=== PATIENT | female | born 1935 | race Caucasian/White ===

== ENCOUNTER 2016-06-10 19:03 | Inpatient (IN) | payer MEDICARE ==
[~2016-06-10] VITALS: Ht 162.6 cm; Wt 73.1 kg
[~2016-06-10 19:03] MED LIST: AMLO5TAB22 PO; ASPI325T PO; ATEN-102 PO; BENA10 PO; CLON.2 PO; LOVA20TA PO; METH4PAK PO
[2016-06-10 19:07] VITALS: BP 188/84; PULSE 76; RESP 15; TEMP 98; O2SAT 97
[2016-06-10] MEDS ORDERED: SODIUM CHLOR 0.9% 1000 ML INJ 1,000 ML IV SCH (20:44)
[2016-06-10] MEDS ORDERED: PANTOPRAZOLE INJ 80 MG in SODIUM CHLORIDE 0.9% INJ 35 ML IV ONE (20:45)
[2016-06-10] MEDS ORDERED: ONDANSETRON HCL 4 MG/2 ML VIAL IVP ONE (20:45)
--- NOTE | 2016-06-10 20:52 | PD ---
HPI Chief Complaint: GI Complaint Time Seen by Provider: 20:36 Travel History International Travel<30 days: No Contact w/Intl Traveler<30days: No Traveled to known affect area: No History of Present Illness HPI 81-year-old female complains of low abdominal pain and bloody stool. Patient started having low abdominal cramping pain since last night. Patient started having intermittent diarrhea with bright red bloody stools since last night also. Patient states that she vomited once last night but not today. Patient states that the abdominal pain is intermittent cramping pain localized to the lower abdomen. Patient denies any pain radiation. Patient denies any fever chills. Patient denies any dysuria or frequency. Patient denies any vaginal discharge or bleeding. Patient states that she had colonoscopy done by Dr. Marina 3 years ago which was normal. Patient has history hypertension, dyslipidemia, atrial fibrillation. Patient on aspirin 325 mg daily. On a scale from 1-10 the pain is a 3. PFSH Past Medical History Hx Anticoagulant Therapy: Yes (asa) Arthritis: Yes Asthma: No Atrial Fibrillation: Yes Autoimmune Disease: No Depression: No Heart Rhythm Problems: Yes (A-FIB) Cancer: No Cardiovascular Problems: Yes (AFIB/ABLATION) High Cholesterol: No Chemotherapy: No Chest Pain: No Congestive Heart Failure: No COPD: No Cerebrovascular Accident: No Diabetes: No Diminished Hearing: No Endocrine: No Gastrointestinal Disorders: Yes GERD: No Genitourinary: No Hepatitis: No Hiatal Hernia: No Hypertension: Yes Immune Disorder: No Kidney Stones: No Musculoskeletal: No Neurologic: No Psychiatric: No Reproductive: No Respiratory: No Migraines: No Radiation Therapy: No Renal Failure: No Seizures: No Sickle Cell Disease: No Sleep Apnea: No Thyroid Disease: No Ulcer: No Menopausal: Yes Past Surgical History Abdominal Surgery: No AICD: No Arteriovenous Shunt: No Cardiac Surgery: No Ear Surgery: No Eye Surgery: Yes (LEFT CATARACT) Genitourinary Surgery: No Gynecologic Surgery: No Insulin Pump: No Joint Replacement: No Oral Surgery: No Pacemaker: No Thoracic Surgery: No Tonsillectomy: Yes Other Surgery: Yes (ABLASION) Social History Alcohol Use: Yes (FEW DRINKS PER WEEK) Tobacco Use: No Substance Use: No Allergies-Medications (Allergen,Severity, Reaction): Coded Allergies: ANTIHISTAMINE DRUGS (Verified Allergy, Severe, HYPERTENSION, 06/10/16) Reported Meds & Prescriptions Reported Meds & Active Scripts Active Reported Losartan (Losartan Potassium) 100 Mg Tab 100 Mg PO DAILY Lovastatin 20 Mg Tab 20 Mg PO HS Hydralazine (Hydralazine HCl) 50 Mg Tab 50 Mg PO TID Take with a meal Amlodipine (Amlodipine Besylate) 5 Mg Tab 5 Mg PO BID Benazepril (Benazepril HCl) 20 Mg Tab 20 Mg PO BID Atenolol 50 Mg Tab 50 Mg PO BID Review of Systems General / Constitutional: No: Fever Eyes: No: Visual changes HENT: No: Headaches Cardiovascular: No: Chest Pain or Discomfort Respiratory: No: Shortness of Breath Gastrointestinal: Positive: Nausea, Vomiting, Diarrhea, Abdominal Pain, Hematochezia Genitourinary: No: Dysuria Musculoskeletal: No: Pain Skin: No Rash Neurologic: No: Weakness Psychiatric: No: Depression Endocrine: No: Polydipsia Hematologic/Lymphatic: No: Easy Bruising Physical Exam Narrative GENERAL: Well-nourished, well-developed patient. SKIN: Warm and dry. HEAD: Normocephalic. EYES: No scleral icterus. No injection or drainage. NECK: Supple, trachea midline. No JVD or lymphadenopathy. CARDIOVASCULAR: Regular rate and rhythm without murmurs, gallops, or rubs. RESPIRATORY: Breath sounds equal bilaterally. No accessory muscle use. GASTROINTESTINAL: Abdomen soft, nondistended. Patient has mild tenderness on palpation lower abdomen. No rebound tenderness. No mass. Rectal exam, patient has red stool, hemocculted positive. No active bleeding out of her rectum. MUSCULOSKELETAL: No cyanosis, or edema. BACK: Nontender without obvious deformity. No CVA tenderness. Neurologic exam normal. Data Data Last Documented VS Vital Signs Date Time Temp Pulse Resp B/P Pulse Ox O2 Delivery O2 Flow Rate FiO2 06/11/16 02:00 66 20 150/70 95 Room Air 06/10/16 19:07 98.0 Orders Complete Blood Count With Diff (06/10/16 20:44) Comprehensive Metabolic Panel (06/10/16 20:44) Lipase (06/10/16 20:44) Prothrombin Time / Inr (Pt) (06/10/16 20:44) Act Partial Throm Time (Ptt) (06/10/16 20:44) Urinalysis - C+S If Indicated (06/10/16 20:44) Type And Screen (06/10/16 20:44) Chest, Single Ap (06/10/16 20:44) Ecg Monitoring (06/10/16 20:44) Iv Access Insert/Monitor (06/10/16 20:44) Oximetry (06/10/16 20:44) Ondansetron Inj (Zofran Inj) (06/10/16 20:45) Sodium Chlor 0.9% 1000 Ml Inj (Ns 1000 M (06/10/16 20:44) Pantoprazole Inj (Protonix Inj) (06/10/16 20:45) Pantoprazole Inj (Protonix Inj) (06/10/16 20:45) Electrocardiogram (06/10/16 ) Potassium Chlor 20 Meq Premix (Kcl 20 Me (06/11/16 01:15) Ct Abd/Pel W Iv Contrast(Rout) (06/11/16 ) Iohexol 350 Inj (Omnipaque 350 Inj) (06/11/16 01:30) Labs Laboratory Tests Test 06/10/16 06/11/16 22:30 02:44 White Blood Count 10.1 TH/MM3 Red Blood Count 4.92 MIL/MM3 Hemoglobin 14.3 GM/DL Hematocrit 42.7 % Mean Corpuscular Volume 86.7 FL Mean Corpuscular Hemoglobin 29.1 PG Mean Corpuscular Hemoglobin 33.5 % Concent Red Cell Distribution Width 14.5 % Platelet Count 229 TH/MM3 Mean Platelet Volume 9.9 FL Neutrophils (%) (Auto) 80.8 % Lymphocytes (%) (Auto) 10.4 % Monocytes (%) (Auto) 6.5 % Eosinophils (%) (Auto) 1.5 % Basophils (%) (Auto) 0.8 % Neutrophils # (Auto) 8.2 TH/MM3 Lymphocytes # (Auto) 1.0 TH/MM3 Monocytes # (Auto) 0.7 TH/MM3 Eosinophils # (Auto) 0.1 TH/MM3 Basophils # (Auto) 0.1 TH/MM3 CBC Comment DIFF FINAL Differential Comment Prothrombin Time 10.9 SEC Prothromb Time International 1.0 RATIO Ratio Activated Partial 28.7 SEC Thromboplast Time Sodium Level 142 MEQ/L Potassium Level 2.8 MEQ/L Chloride Level 104 MEQ/L Carbon Dioxide Level 23.0 MEQ/L Anion Gap 15 MEQ/L Blood Urea Nitrogen 20 MG/DL Creatinine 1.12 MG/DL Estimat Glomerular Filtration 47 ML/MIN Rate Random Glucose 97 MG/DL Calcium Level 9.2 MG/DL Total Bilirubin 0.8 MG/DL Aspartate Amino Transf 13 U/L (AST/SGOT) Alanine Aminotransferase 18 U/L (ALT/SGPT) Alkaline Phosphatase 120 U/L Total Protein 7.7 GM/DL Albumin 3.9 GM/DL Lipase 77 U/L Blood Type A POSITIVE Antibody Screen NEGATIVE Urine Color YELLOW Urine Turbidity CLEAR Urine pH 6.5 Urine Specific [place] 1.022 Urine Protein NEG mg/dL Urine Glucose (UA) NEG mg/dL Urine Ketones NEG mg/dL Urine Occult Blood NEG Urine Nitrite NEG Urine Bilirubin NEG Urine Urobilinogen LESS THAN 2.0 MG/DL Urine Leukocyte Esterase LARGE Urine RBC 1 /hpf Urine WBC 3 /hpf Urine Squamous Epithelial 2 /hpf Cells Urine Mucus FEW /lpf Microscopic Urinalysis Comment CULT NOT INDICATED MDM Medical Decision Making Medical Screen Exam Complete: Yes Emergency Medical Condition: Yes Interpretation(s) Last Impressions Abdomen/Pelvis CT 06/11/16 0000 Signed Impressions: Service Date/Time: Saturday, June 11, 2016 01:30 - CONCLUSION: 1. Wall thickening of the descending and sigmoid colon which can be seen with colitis. Underlying diverticulitis cannot be excluded. 2. Hepatic and splenic low densities likely benign. 3. Several soft tissue masses are seen within the mesentery concerning for neoplastic etiology. 4. Uterus is somewhat prominent for patient's age. Nonemergent transvaginal pelvic sonogram to evaluate endometrium. 5. 1.2 cm right renal low density, likely benign. John Knowles MD Chest X-Ray 06/10/162043 Signed Impressions: Service Date/Time: May 20:44 - CONCLUSION: No evidence of acute cardiopulmonary disease. Jamison Macias MD 3:11 AM. CBC within normal limit. 80 neutrophil. Potassium 2.8. BUN 20. Creatinine 1.12. Alkaline phosphatase 120. UA is negative. Differential Diagnosis Differential diagnosis including upper versus lower GI bleed, gastritis, PUD, colitis, UTI, pyelonephritis, nephrolithiasis. Narrative Course 81-year-old female with low abdominal pain, diarrhea, bloody stool. Normal saline solution 100 cc an hour. Protonix bolus and drip started. Levaquin 750 mg IV. Flagyl 500 mg IV. Diagnosis Primary Impression: Colitis Additional Impressions: GI bleed Qualified Code: K92.2 - Gastrointestinal hemorrhage, unspecified gastrointestinal hemorrhage type Hypokalemia Renal insufficiency Admitting Information Admitting Physician Requests: Admit Antony Daniels MD Jun 10, 2016 20:52
--- NOTE | 2016-06-10 21:01 | RADRPT ---
EXAM DATE/TIME: 06/10/2016 20:44 [facility] COMPARISON: CHEST SINGLE AP, February 05, 2013, 13:24. CHEST SINGLE AP, December 15, 2012, 14:27. INDICATIONS : Shortness of breath. MEDICAL HISTORY : None. SURGICAL HISTORY : None. ENCOUNTER: Initial ACUITY: 1 day PAIN SCORE: 0/10 LOCATION: Bilateral chest FINDINGS: A single view of the chest demonstrates the lungs to be symmetrically aerated without evidence of mas s, infiltrate or effusion. The cardiomediastinal contours are unremarkable. Osseous structures are intact. CONCLUSION: No evidence of acute cardiopulmonary disease. Jamison Macias MD on June 10, 2016 at 20:59 Board Certified Radiologist. This report was verified electronically.
[2016-06-10] MEDS: PANTOPRAZOLE INJ 80 MG in SODIUM CHLORIDE 0.9% INJ 100 ML IV SCH (21:18)
[2016-06-10 21:25] VITALS: RESP 18; O2SAT 98
[2016-06-11] VITALS (9 sets, daily range): BP systolic 116–180; BP diastolic 58–81; PULSE 60–73; RESP 16–20; TEMP 96.6–98.2; O2SAT 92–97
[2016-06-11 00:05] LABS: AUTOMATED NEUTROPHIL # 8.2 TH/MM3 (1.8-7.7); BASOPHIL # 0.1 TH/MM3 (0-0.2); BASOPHIL % 0.8 % (0.0-2.0); EOSINOPHIL # 0.1 TH/MM3 (0-0.4); EOSINOPHIL % 1.5 % (0.0-4.0); HEMATOCRIT 42.7 % (35.0-46.0); HEMO FLAGS DIFF FINAL; LYMPH % 10.4 % (9.0-44.0); MEAN CELL VOLUME 86.7 FL (80.0-100.0); MEAN CORPUSCULAR HEMOGLOBIN 29.1 PG (27.0-34.0); MEAN CORPUSCULAR HGB CONC 33.5 % (32.0-36.0); MONO % 6.5 % (0.0-8.0); NEUT % 80.8 % (16.0-70.0); PLATELET COUNT 229 TH/MM3 (150-450); RED BLOOD COUNT 4.92 MIL/MM3 (4.00-5.30); RED CELL DISTRIBUTION WIDTH 14.5 % (11.6-17.2); WHITE BLOOD COUNT 10.1 TH/MM3 (4.0-11.0)
[2016-06-11] MEDS ORDERED: HYDR50TA15 PO (00:08)
[2016-06-11] MEDS ORDERED: LOVA20TA PO (00:08)
[2016-06-11] MEDS ORDERED: ATEN50TA PO (00:08)
[2016-06-11] MEDS ORDERED: AMLO5TAB2 PO (00:08)
[2016-06-11] MEDS ORDERED: BENA20TA PO (00:08)
[2016-06-11] MEDS ORDERED: LOSA100T PO (00:09)
[2016-06-11 00:18] LABS: APTT (PATIENT) 28.7 SEC (24.3-30.1); PROTHROMBIN TIME - PATIENT 10.9 SEC (9.8-11.6)
[2016-06-11 01:06] LABS: ALKALINE PHOSPHATASE 120 U/L (45-117); ALT (GPT) 18 U/L (10-53); ANION GAP 15 MEQ/L (5-15); AST (GOT) 13 U/L (15-37); BLOOD UREA NITROGEN 20 MG/DL (7-18); CHLORIDE 104 MEQ/L (98-107); GLOMERULAR FILTRATION RATE 47 ML/MIN (>89); SODIUM (NA) 142 MEQ/L (136-145); TOTAL BILIRUBIN ADULT 0.8 MG/DL (0.2-1.0)
[2016-06-11 01:07] LABS: POTASSIUM 2.8 MEQ/L (3.5-5.1)
[2016-06-11] MEDS ORDERED: IOHEXOL 350 MG/ML 10 ML VIAL (for RAD DIAG) IV ONE (01:30)
--- NOTE | 2016-06-11 02:12 | RADRPT ---
EXAM DATE/TIME: 06/11/2016 01:30 [facility] COMPARISON: No previous studies available for comparison. INDICATIONS : Lower abdominal pain and bloody stool. IV CONTRAST: 93 cc Omnipaque 350 (iohexol) IV ORAL CONTRAST: No oral contrast ingested. RADIATION DOSE: 9.12 CTDIvol (mGy) MEDICAL HISTORY : Hypertension. SURGICAL HISTORY : None. ENCOUNTER: Initial ACUITY: 1 day PAIN SCALE: 7/10 LOCATION: lower quadrant abdomen TECHNIQUE: Volumetric scanning of the abdomen and pelvis was performed. Using automated exposure control and ad justment of the mA and/or kV according to patient size, radiation dose was kept as low as reasonably achievable to obtain optimal diagnostic quality images. FINDINGS: LOWER LUNGS: The visualized lower lungs are clear. LIVER: Homogeneous density without lesion. There is no dilation of the biliary tree. No calcified gallston es. 1.5 cm low-density lesion. Small low densities are seen. SPLEEN: Subcentimeter low density noted. PANCREAS: Within normal limits. KIDNEYS: Normal in size and shape. There is no mass, stone or hydronephrosis. 1.2 cm low-density involving th e lower pole right kidney. ADRENAL GLANDS: Within normal limits. VASCULAR: There is no aortic aneurysm. BOWEL/MESENTERY: Wall thickening and slight inflammatory change involving the descending and sigmoid colon. There is d iverticulosis of the well.. There is no free intraperitoneal air or fluid. Soft tissue masses are se en within the right lower quadrant mesentery the largest appears to contain some necrosis measuring 3 .1 x 3.1 cm. There is also one slightly more anteriorly measuring 2.4 x 1.9 cm. Another one measures 1.5 x 1.9 cm. Several other smaller ones are seen. ABDOMINAL WALL: Within normal limits. RETROPERITONEUM: There is no lymphadenopathy. BLADDER: No wall thickening or mass. REPRODUCTIVE: Uterus is slightly prominent. INGUINAL: There is no lymphadenopathy or hernia. MUSCULOSKELETAL: Within normal limits for patient age. CONCLUSION: 1. Wall thickening of the descending and sigmoid colon which can be seen with colitis. Underlying div erticulitis cannot be excluded. 2. Hepatic and splenic low densities likely benign. 3. Several soft tissue masses are seen within the mesentery concerning for neoplastic etiology. 4. Uterus is somewhat prominent for patient's age. Nonemergent transvaginal pelvic sonogram to evalua te endometrium. 5. 1.2 cm right renal low density, likely benign. John Knowles MD on June 11, 2016 at 2:05 Board Certified Radiologist. This report was verified electronically.
[2016-06-11] MEDS: POTASSIUM CHLOR 20 MEQ PREMIX 100 ML IV SCH ×2 (02:50→03:51)
[2016-06-11 03:05] LABS: BLOOD, URINE NEG (NEG); COMMENT (UR) CULT NOT INDICATED; CULTURE IF INDICATED CULT NOT INDICATED; GLUCOSE,URINE NEG (NEG); KETONE, URINE NEG (NEG); MUCUS URINE FEW /lpf (OCC); NITRITE,URINE NEG (NEG); PH, URINE 6.5 (5.0-8.5); SQUAMOUS EPITHELIAL CELL URINE 2 /hpf (0-5); URINE COLOR YELLOW (YELLW/STRAW)
[2016-06-11] MEDS ORDERED: SODIUM CHLORIDE 0.9% FLUSH 5 ML FLUSH IVF PRN (03:30)
[2016-06-11] MEDS ORDERED: ACETAMINOPHEN 325 MG TAB PO PRN (03:30)
[2016-06-11] MEDS ORDERED: LEVOFLOXACIN 750 MG PREMIX INJ 150 ML IV ONE (03:30)
[2016-06-11] MEDS ORDERED: metroNIDAZOLE 500 MG INJ 100 ML IV ONE (03:30)
[2016-06-11] MEDS ORDERED: ONDANSETRON HCL 4 MG/2 ML VIAL IV PRN (03:30)
[2016-06-11] MEDS: NS + KCL 20 MEQ INJ 1,000 ML IV SCH ×2 (04:53→13:30)
[2016-06-11 05:53] LABS: AUTOMATED NEUTROPHIL # 5.4 TH/MM3 (1.8-7.7); BASOPHIL # 0.1 TH/MM3 (0-0.2); EOSINOPHIL # 0.2 TH/MM3 (0-0.4); EOSINOPHIL % 2.5 % (0.0-4.0); HEMATOCRIT 33.8 % (35.0-46.0); HEMO FLAGS DIFF FINAL; LYMPH % 14.5 % (9.0-44.0); LYMPHOCYTE # 1.1 TH/MM3 (1.0-4.8); MEAN CELL VOLUME 87.7 FL (80.0-100.0); MEAN CORPUSCULAR HEMOGLOBIN 29.4 PG (27.0-34.0); MEAN CORPUSCULAR HGB CONC 33.5 % (32.0-36.0); MONO % 8.1 % (0.0-8.0); NEUT % 73.9 % (16.0-70.0); PLATELET COUNT 170 TH/MM3 (150-450); RED BLOOD COUNT 3.85 MIL/MM3 (4.00-5.30); RED CELL DISTRIBUTION WIDTH 14.1 % (11.6-17.2); WHITE BLOOD COUNT 7.3 TH/MM3 (4.0-11.0)
[2016-06-11 06:25] LABS: POTASSIUM 3.3 MEQ/L (3.5-5.1)
[2016-06-11] MEDS: POTASSIUM CHLORIDE 20 MEQ CONTROLLED RELEASE TAB PO SCH ×2 (08:08→21:19)
[2016-06-11] MEDS: SODIUM CHLORIDE 0.9% FLUSH 5 ML FLUSH IVF SCH ×2 (08:11→21:00)
[2016-06-11] MEDS: PANTOPRAZOLE INJ 80 MG in SODIUM CHLORIDE 0.9% INJ 100 ML IV SCH ×2 (08:41→18:13)
[2016-06-11] MEDS: ATENOLOL 50 MG TAB PO SCH ×2 (09:20→21:19)
[2016-06-11] MEDS: hydrALAZINE HCL 50 MG TAB PO SCH ×4 (09:20→18:13)
[2016-06-11] MEDS: amLODIPine BESYLATE 5 MG TAB PO SCH ×2 (09:20→21:19)
[2016-06-11] MEDS: LISINOPRIL 20 MG TAB PO SCH ×2 (09:20→21:19)
--- NOTE | 2016-06-11 11:05 | HHI.HP ---
HPI [facility] Primary Care Physician Gael Smyth MD Admission Diagnosis colitis. GI bleed. Hypokalemia. Renal insufficiency. Travel History International Travel<30 Days: No Contact w/Intl Traveler <30 Da: No Traveled to Known Affected Are: No History of Present Illness Pt is 81 yo with hx diverticulosis and afib who presents with rectal bleeding x 2 day. ED w/up showed descending/sigmoid colon inflammation..colitis vs diverticulitis. also some rlq mesenteric masses/?necrotic with uterine enlargement noted. Pt started on iv abx. Past Family Social History Past Medical History diverticuloosis afib polymyalgia rheumatica remote hx hyperthyroidism tonsillectomy carpal tunnel htn ckd 3 coumadin toxicity and diverticular bleed colonoscopy 2012. severe divertics in descending/sigmoid Reported Medications Losartan (Losartan Potassium) 100 Mg Tab 100 Mg PO DAILY Lovastatin 20 Mg Tab 20 Mg PO HS Hydralazine (Hydralazine HCl) 50 Mg Tab 50 Mg PO TID Take with a meal Amlodipine (Amlodipine Besylate) 5 Mg Tab 5 Mg PO BID Benazepril (Benazepril HCl) 20 Mg Tab 20 Mg PO BID Atenolol 50 Mg Tab 50 Mg PO BID asa Allergies: Coded Allergies: ANTIHISTAMINE DRUGS (Verified Allergy, Severe, HYPERTENSION, 06/10/16) Family History nc Social History no etoh/tob Physical Exam Vital Signs heart reg lung cta abd s/nt ext no edema Vital Signs Date Time Temp Pulse Resp B/P Pulse Ox O2 Delivery O2 Flow Rate FiO2 06/11/16 09:46 97 06/11/16 08:00 96.6 70 16 180/81 96 06/11/16 05:15 98.2 71 18 169/74 94 06/11/16 04:10 95 06/11/16 02:00 66 20 150/70 95 Room Air 06/11/16 00:00 60 20 149/70 95 Room Air 06/10/16 21:25 18 98 Room Air 06/10/16 19:07 98.0 76 15 188/84 97 Room Air Laboratory Laboratory Tests Test 06/10/16 06/11/16 06/11/16 06/11/16 22:30 02:44 04:50 05:30 White Blood Count 10.1 7.3 Red Blood Count 4.92 3.85 Hemoglobin 14.3 11.3 Hematocrit 42.7 33.8 Mean Corpuscular Volume 86.7 87.7 Mean Corpuscular Hemoglobin 29.1 29.4 Mean Corpuscular Hemoglobin 33.5 33.5 Concent Red Cell Distribution Width 14.5 14.1 Platelet Count 229 170 Mean Platelet Volume 9.9 10.0 Neutrophils (%) (Auto) 80.8 73.9 Lymphocytes (%) (Auto) 10.4 14.5 Monocytes (%) (Auto) 6.5 8.1 Eosinophils (%) (Auto) 1.5 2.5 Basophils (%) (Auto) 0.8 1.0 Neutrophils # (Auto) 8.2 5.4 Lymphocytes # (Auto) 1.0 1.1 Monocytes # (Auto) 0.7 0.6 Eosinophils # (Auto) 0.1 0.2 Basophils # (Auto) 0.1 0.1 CBC Comment DIFF FINAL DIFF FINAL Differential Comment Prothrombin Time 10.9 Prothromb Time International 1.0 Ratio Activated Partial 28.7 Thromboplast Time Sodium Level 142 142 Potassium Level 2.8 3.3 Chloride Level 104 107 Carbon Dioxide Level 23.0 21.0 Anion Gap 15 14 Blood Urea Nitrogen 20 15 Creatinine 1.12 0.93 Estimat Glomerular Filtration 47 58 Rate Random Glucose 97 107 Calcium Level 9.2 7.9 Total Bilirubin 0.8 Aspartate Amino Transf 13 (AST/SGOT) Alanine Aminotransferase 18 (ALT/SGPT) Alkaline Phosphatase 120 Total Protein 7.7 Albumin 3.9 Lipase 77 Blood Type A POSITIVE Antibody Screen NEGATIVE Urine Color YELLOW Urine Turbidity CLEAR Urine pH 6.5 Urine Specific [place] 1.022 Urine Protein NEG Urine Glucose (UA) NEG Urine Ketones NEG Urine Occult Blood NEG Urine Nitrite NEG Urine Bilirubin NEG Urine Urobilinogen LESS THAN 2.0 Urine Leukocyte Esterase LARGE Urine RBC 1 Urine WBC 3 Urine Squamous Epithelial 2 Cells Urine Mucus FEW Microscopic Urinalysis Comment CULT NOT INDICATED Result Diagram: 06/11/16 0450 06/11/16 1767 Assessment and Plan Problem List: (1) GIB (gastrointestinal bleeding) Status: Acute Plan: Pt with hx diverticolosis presents with [address] shows inflammation of descending and sigmoid colon....colitis vs diverticulitis with multiple small masses in mesentery of unclear etiology. Also some uterine enlargement noted. 2012 c-scope showed severe sigmoid/descending colon diverticulosis. GI consulted cont iv abx cont ivf with kcl will need c-scope probably as outpt will plan for evaluation of uterine enlargement/mesenteric masses when more stable from GI standt dvt prophyaxis (2) Mesenteric mass Status: Acute Plan: see above (3) HTN (hypertension) Status: Chronic Plan: cont risa/ccb/bb/hydrazine. hold and d/c arb. prn control. add alternative bp med if needed. (4) Atrial fibrillation Status: Chronic Plan: s/p ablation. currently in sinus (5) Hypokalemia Status: Acute Plan: ivf with kcl. Physician Certification 2 Midnight Certification Type: Admission for Inpatient Services Order for Inpatient Services 3The services are ordered in accordance with Medicare regulations or non- Medicare payer requirements, as applicable. In the case of services not specified as inpatient-only, they are appropriately provided as inpatient services in accordance with the 2-midnight benchmark. Estimated LOS (days): 3 3 days is the estimated time the patient will need to remain in the hospital, assuming treatment plan goals are met and no additional complications. Post-Hospital Plan: Home Arnel Johnson MD Jun 11, 2016 11:05
--- NOTE | 2016-06-11 11:33 | PD.CONS ---
HPI History of Present Illness This is a 81 year old female patient who came to the ER for evaluation of rectal bleeding and hematochezia. She reports that yesterday morning, she had a normal bowel movement. She does have intermittent constipation and reports that she may have strained some, but nothing significant. Afterwards, she had a moderate amount of rectal bleeding consisting of red blood. She then had several loose bowel movements mixed with red blood. She denies any associated nausea, vomiting, abdominal pain, shortness of breath, weakness, or diaphoresis. She became alarmed and came to the ER for further evaluation. She denies ever having this in the past. Abdomen/Pelvis CT (06/11/16) revealed 1. Wall thickening of the descending and sigmoid colon which can be seen with colitis. Underlying diverticulitis cannot be excluded. 2. Hepatic and splenic low densities likely benign. 3. Several soft tissue masses are seen within the mesentery concerning for neoplastic etiology. 4. Uterus is somewhat prominent for patient's age. Nonemergent transvaginal pelvic sonogram to evaluate endometrium. 5. 1.2 cm right renal low density, likely benign. She denies fever or chills. She does report that she has had decreased appetite for several months and has lost 10 lbs unintentionally. She was evaluated with EGD/ Colonoscopy (01/09/13)-----> Gastritis in the antrum, polyps in stomach body ( unable to biopsy secondary to two episodes of desaturation)- likely hyperplastic polyps; old blood seen in the sigmoid and descending colon most likely the source of the bleeding but no active bleed. Severe diverticulosis and sigmoid in descending colon, the rest of the colon was normal. She denies any hx of diverticulitis. Of note, she has been eating a large amount of nuts for the holidays. (Melly Castro) PFSH Past Medical History Arthritis Carpal tunnel syndrome CKD HTN Hyperlipidemia Osteopenia Paroxysmal atrial fibrillation Polymyalgia rheumatica Scoliosis Cataracts Diverticulosis Past Surgical History Cataract surgery Injection of trigger points Neuroplasty median nerve Colonoscopy EGD (Melly Castro) Coded Allergies: ANTIHISTAMINE DRUGS (Verified Allergy, Severe, HYPERTENSION, 06/10/16) Medications Allergies Coded Allergies Type Severity Reaction Last Updated Verified ANTIHISTAMINE DRUGS Allergy Severe HYPERTENSION 06/10/16 Yes Active Scripts Medications Dose Route/Sig Days Date Category Dose Instructions Losartan (Losartan Potassium) 100 Mg Tab 100 Mg PO DAILY 06/11/16 Reported Lovastatin 20 Mg Tab 20 Mg PO HS 06/11/16 Reported Hydralazine (Hydralazine HCl) 50 Mg Tab 50 Mg PO TID 06/11/16 Reported Take with a meal Amlodipine (Amlodipine Besylate) 5 Mg Tab 5 Mg PO BID 06/11/16 Reported Benazepril (Benazepril HCl) 20 Mg Tab 20 Mg PO BID 06/11/16 Reported Atenolol 50 Mg Tab 50 Mg PO BID 06/11/16 Reported Family History Mother had breast cancer Social History Occasional ETOH. No tobacco. (Melly Castro) Review of Systems Constitutional: COMPLAINS OF: Weight loss, Change in appetite, DENIES: Fatigue , Fever, Chills Respiratory: DENIES: Cough, Shortness of breath Cardiovascular: DENIES: Chest pain Gastrointestinal: COMPLAINS OF: Bloody stools, Heartburn (occasionally if she eats garlic), DENIES: Abdominal pain, Black stools, Constipation, Nausea, Vomiting, Swelling of Abdomen Musculoskeletal: COMPLAINS OF: Joint pain, DENIES: Muscle aches Integumentary: DENIES: Rash Hematologic/lymphatic: DENIES: Bruising Immunologic/allergic: DENIES: Eczema Psychiatric: DENIES: Confusion (Melly Castro) GI Exam Vitals I&O Vital Signs Date Time Temp Pulse Resp B/P Pulse Ox O2 Delivery O2 Flow Rate FiO2 06/11/16 09:46 97 06/11/16 08:00 96.6 70 16 180/81 96 06/11/16 05:15 98.2 71 18 169/74 94 06/11/16 04:10 95 06/11/16 02:00 66 20 150/70 95 Room Air 06/11/16 00:00 60 20 149/70 95 Room Air 06/10/16 21:25 18 98 Room Air 06/10/16 19:07 98.0 76 15 188/84 97 Room Air Imaging Last Impressions Abdomen/Pelvis CT 06/11/16 0000 Signed Impressions: Service Date/Time: Saturday, June 11, 2016 01:30 - CONCLUSION: 1. Wall thickening of the descending and sigmoid colon which can be seen with colitis. Underlying diverticulitis cannot be excluded. 2. Hepatic and splenic low densities likely benign. 3. Several soft tissue masses are seen within the mesentery concerning for neoplastic etiology. 4. Uterus is somewhat prominent for patient's age. Nonemergent transvaginal pelvic sonogram to evaluate endometrium. 5. 1.2 cm right renal low density, likely benign. John Knowles MD Chest X-Ray 06/10/162043 Signed Impressions: Service Date/Time: May 20:44 - CONCLUSION: No evidence of acute cardiopulmonary disease. Jamison Macias MD Laboratory Test 06/10/16 06/11/16 06/11/16 06/11/16 22:30 02:44 04:50 05:30 White Blood Count 10.1 TH/MM3 7.3 TH/MM3 Red Blood Count 4.92 MIL/MM3 3.85 MIL/MM3 Hemoglobin 14.3 GM/DL 11.3 GM/DL Hematocrit 42.7 % 33.8 % Mean Corpuscular Volume 86.7 FL 87.7 FL Mean Corpuscular Hemoglobin 29.1 PG 29.4 PG Mean Corpuscular Hemoglobin 33.5 % 33.5 % Concent Red Cell Distribution Width 14.5 % 14.1 % Platelet Count 229 TH/MM3 170 TH/MM3 Mean Platelet Volume 9.9 FL 10.0 FL Neutrophils (%) (Auto) 80.8 % 73.9 % Lymphocytes (%) (Auto) 10.4 % 14.5 % Monocytes (%) (Auto) 6.5 % 8.1 % Eosinophils (%) (Auto) 1.5 % 2.5 % Basophils (%) (Auto) 0.8 % 1.0 % Neutrophils # (Auto) 8.2 TH/MM3 5.4 TH/MM3 Lymphocytes # (Auto) 1.0 TH/MM3 1.1 TH/MM3 Monocytes # (Auto) 0.7 TH/MM3 0.6 TH/MM3 Eosinophils # (Auto) 0.1 TH/MM3 0.2 TH/MM3 Basophils # (Auto) 0.1 TH/MM3 0.1 TH/MM3 CBC Comment DIFF FINAL DIFF FINAL Differential Comment Prothrombin Time 10.9 SEC Prothromb Time International 1.0 RATIO Ratio Activated Partial 28.7 SEC Thromboplast Time Sodium Level 142 MEQ/L 142 MEQ/L Potassium Level 2.8 MEQ/L 3.3 MEQ/L Chloride Level 104 MEQ/L 107 MEQ/L Carbon Dioxide Level 23.0 MEQ/L 21.0 MEQ/L Anion Gap 15 MEQ/L 14 MEQ/L Blood Urea Nitrogen 20 MG/DL 15 MG/DL Creatinine 1.12 MG/DL 0.93 MG/DL Estimat Glomerular Filtration 47 ML/MIN 58 ML/MIN Rate Random Glucose 97 MG/DL 107 MG/DL Calcium Level 9.2 MG/DL 7.9 MG/DL Total Bilirubin 0.8 MG/DL Aspartate Amino Transf 13 U/L (AST/SGOT) Alanine Aminotransferase 18 U/L (ALT/SGPT) Alkaline Phosphatase 120 U/L Total Protein 7.7 GM/DL Albumin 3.9 GM/DL Lipase 77 U/L Blood Type A POSITIVE Antibody Screen NEGATIVE Urine Color YELLOW Urine Turbidity CLEAR Urine pH 6.5 Urine Specific [place] 1.022 Urine Protein NEG mg/dL Urine Glucose (UA) NEG mg/dL Urine Ketones NEG mg/dL Urine Occult Blood NEG Urine Nitrite NEG Urine Bilirubin NEG Urine Urobilinogen LESS THAN 2.0 MG/DL Urine Leukocyte Esterase LARGE Urine RBC 1 /hpf Urine WBC 3 /hpf Urine Squamous Epithelial 2 /hpf Cells Urine Mucus FEW /lpf Microscopic Urinalysis Comment CULT NOT INDICATED Physical Examination HEENT: Normocephalic; atraumatic; no jaundice. Throat is clear. NECK: Neck is supple, no JVD, no lymphadenopathy. CHEST: CTA. CARDIAC: RRR ABDOMEN: Soft, nondistended, nontender; no hepatosplenomegaly; bowel sounds are present in all four quadrants. EXTREMITIES: No clubbing, cyanosis, or edema. SKIN: Normal; no rash; no jaundice. EEG TECH: No focal deficits; alert and oriented times three. (Melly CastroP) Assessment and Plan Plan ASSESSMENT: - GIB. Pt with rectal bleeding, hematochezia with bowel movements. Started yesterday morning- had a normal bowel movement followed by moderate amount of red blood and then had several episodes of loose stools mixed with blood yesterday am, no further episodes. HH dropped from 14.3 to 11.3. Currently stable with no active bleeding. - Diverticulitis vs. Colitis. Abdomen/Pelvis CT (06/11/16) revealed 1. Wall thickening of the descending and sigmoid colon which can be seen with colitis. Underlying diverticulitis cannot be excluded. 2. Hepatic and splenic low densities likely benign. 3. Several soft tissue masses are seen within the mesentery concerning for neoplastic etiology. 4. Uterus is somewhat prominent for patient's age. Nonemergent transvaginal pelvic sonogram to evaluate endometrium. 5. 1.2 cm right renal low density, likely benign. WBC stable. Afebrile. EGD/Colonoscopy (01/09/13)-----> Gastritis in the antrum, polyps in stomach body (unable to biopsy secondary to two episodes of desaturation)- likely hyperplastic polyps; old blood seen in the sigmoid and descending colon most likely the source of the bleeding but no active bleed. Severe diverticulosis and sigmoid in descending colon, the rest of the colon was normal. No hx of diverticulitis. However, inflammation is at some area where she has known severe diverticulosis- descending and sigmoid colon. She also has been eating alot of nuts recently. Will treat with levaquin/flagyl for diverticulitis at this time and obtain stool studies to rule out infectious etiology. If symptoms improve with antibiotics, then would recommend colonoscopy in 4-6 weeks. If further bleeding or worsening of symptoms, will consider this sooner. - Anemia secondary to blood loss. 14.3/42.7---> 11.3/33.8. - Abnormal imaging with several soft tissue masses are seen within the mesentery concerning for neoplastic etiology, prominent uterus, and right renal low density. Will defer to primary - Hypokalemia. K+ 3.3, per primary - LEONEL, improved. - HTN, Hyperlipidemia, Polymyalgia rheumatica, per primary. PLAN: - Clear liquids - Levaquin 500mg IV daily - Flagyl 500mg IV q8h - Cont. PPI - Monitor HH q6h x 3 - Transfuse as necessary - CBC, BMP in am - Stool for CDiff, O&P, C/S, Giardia - Will treat for diverticulitis, if improves and no further bleeding, will plan for colonoscopy in 4-6 weeks. If no improvement and further bleeding, will consider this earlier. - Supportive care - Further recommendations to follow based on results of above - Pt seen and examined by Dr. Collins and myself and this note is written on his behalf (Melly Castro) Physician Comments Seen and examined, plan as above, continue treatment for Diverticulitis/colitis and supportive care, will need colonoscopy after 6 weeks. Further recommendations to follow. (Ernie Collins MD) Melly Castro Jun 11, 2016 11:33 Ernie Collins MD Jun 11, 2016 13:58
[2016-06-11] MEDS ORDERED: cloNIDine HCL 0.1 MG TAB PO PRN (12:00)
[2016-06-11 13:46] LABS: HEMATOCRIT 34.4 % (35.0-46.0); REVIEW FLAG FINAL
--- NOTE | 2016-06-11 13:47 | EKG ---
Date Performed: 06/10/2016 Time Performed: 21:01:03 PTAGE: 81 years EKG: Sinus rhythm LEFT VENTRICULAR HYPERTROPHY AND ST-T CHANGE ABNORMAL ECG Since PREVIOUS TRACING , no significant change noted PREVIOUS TRACIN03/30/2013 13.52.34 DOCTOR: Kang Zimmerman Interpretating Date/Time 06/11/2016 13:36:47
[2016-06-11] MEDS: metroNIDAZOLE 500 MG INJ 100 ML IV SCH ×2 (14:10→21:26)
[2016-06-11 18:34] LABS: HEMATOCRIT 36.3 % (35.0-46.0); REVIEW FLAG FINAL
[2016-06-12] VITALS (8 sets, daily range): BP systolic 129–161; BP diastolic 67–79; PULSE 60–70; RESP 16–18; TEMP 97–98.3; O2SAT 92–97
[2016-06-12 00:36] LABS: REVIEW FLAG FINAL
[2016-06-12] MEDS: LEVOFLOXACIN 500 MG PREMIX INJ 100 ML IV SCH (04:17)
[2016-06-12 05:43] LABS: BASOPHIL # 0.1 TH/MM3 (0-0.2); BASOPHIL % 0.9 % (0.0-2.0); EOSINOPHIL # 0.3 TH/MM3 (0-0.4); EOSINOPHIL % 4.4 % (0.0-4.0); HEMATOCRIT 34.1 % (35.0-46.0); HEMO FLAGS DIFF FINAL; LYMPH % 16.9 % (9.0-44.0); LYMPHOCYTE # 1.2 TH/MM3 (1.0-4.8); MEAN CELL VOLUME 85.8 FL (80.0-100.0); MEAN CORPUSCULAR HEMOGLOBIN 28.9 PG (27.0-34.0); MEAN CORPUSCULAR HGB CONC 33.7 % (32.0-36.0); MONO % 7.7 % (0.0-8.0); NEUT % 70.1 % (16.0-70.0); PLATELET COUNT 182 TH/MM3 (150-450); RED BLOOD COUNT 3.97 MIL/MM3 (4.00-5.30); RED CELL DISTRIBUTION WIDTH 14.2 % (11.6-17.2); WHITE BLOOD COUNT 7.1 TH/MM3 (4.0-11.0)
[2016-06-12] MEDS: metroNIDAZOLE 500 MG INJ 100 ML IV SCH ×3 (05:44→20:49)
[2016-06-12 06:15] LABS: POTASSIUM 2.8 MEQ/L (3.5-5.1)
[2016-06-12] MEDS: POTASSIUM CHLORIDE 20 MEQ CONTROLLED RELEASE TAB PO SCH ×4 (06:25→20:49)
[2016-06-12] MEDS: SODIUM CHLORIDE 0.9% FLUSH 5 ML FLUSH IVF SCH ×2 (09:00→20:49)
[2016-06-12] MEDS: amLODIPine BESYLATE 5 MG TAB PO SCH ×2 (09:00→20:49)
[2016-06-12] MEDS: LISINOPRIL 20 MG TAB PO SCH ×2 (09:00→20:49)
[2016-06-12] MEDS: hydrALAZINE HCL 50 MG TAB PO SCH ×3 (09:01→17:45)
[2016-06-12] MEDS: NS + KCL 20 MEQ INJ 1,000 ML IV SCH (09:01)
[2016-06-12] MEDS: PANTOPRAZOLE SOD 40 MG DELAYED RELEASE TAB PO SCH (09:01)
[2016-06-12] MEDS: ATENOLOL 50 MG TAB PO SCH ×2 (09:01→20:48)
--- NOTE | 2016-06-12 10:08 | HHI.GIFU ---
Subjective Remarks No more abdominal pain or BPR, diet well tolerated. Objective Vitals I&O Vital Signs Date Time Temp Pulse Resp B/P Pulse Ox O2 Delivery O2 Flow Rate FiO2 06/12/16 08:08 97.0 60 18 152/75 97 06/12/16 04:00 97.9 65 16 161/72 93 06/12/16 00:00 98.3 66 17 145/67 93 06/11/16 20:00 97.8 73 16 144/65 92 06/11/16 16:00 98.1 64 20 116/58 93 06/11/16 12:00 97.4 70 16 156/74 94 I/O 06/11/16 06/11/16 06/11/16 06/12/16 06/12/16 06/12/16 07:00 15:00 23:00 07:00 15:00 23:00 Intake Total 702 ml 240 ml 240 ml Balance 702 ml 240 ml 240 ml Intake Oral 340 ml 240 ml 240 ml IV Total 362 ml # Voids 1 2 1 3 # Bowel Movements 0 0 0 0 Laboratory Laboratory Tests Test 06/11/16 06/11/16 06/12/16 06/12/16 13:31 18:12 00:20 04:55 Hemoglobin 11.8 12.0 11.8 11.5 Hematocrit 34.4 36.3 35.0 34.1 White Blood Count 7.1 Red Blood Count 3.97 Mean Corpuscular Volume 85.8 Mean Corpuscular Hemoglobin 28.9 Mean Corpuscular Hemoglobin 33.7 Concent Red Cell Distribution Width 14.2 Platelet Count 182 Mean Platelet Volume 9.2 Neutrophils (%) (Auto) 70.1 Lymphocytes (%) (Auto) 16.9 Monocytes (%) (Auto) 7.7 Eosinophils (%) (Auto) 4.4 Basophils (%) (Auto) 0.9 Neutrophils # (Auto) 5.0 Lymphocytes # (Auto) 1.2 Monocytes # (Auto) 0.6 Eosinophils # (Auto) 0.3 Basophils # (Auto) 0.1 CBC Comment DIFF FINAL Differential Comment Sodium Level 142 Potassium Level 2.8 Chloride Level 108 Carbon Dioxide Level 22.0 Anion Gap 12 Blood Urea Nitrogen 11 Creatinine 0.90 Estimat Glomerular Filtration 60 Rate Random Glucose 91 Calcium Level 8.5 Physical Exam HEENT: Pupils round and reactive to light; normocephalic; atraumatic; no jaundice. Throat is clear. NECK: Neck is supple, no JVD, no lymphadenopathy. CHEST: Chest is clear to auscultation and percussion. CARDIAC: Regular rate and rhythm with no murmur gallop or rubs. ABDOMEN: Soft, nondistended, nontender; no hepatosplenomegaly; bowel sounds are present in all four quadrants. EXTREMITIES: No clubbing, cyanosis, or edema. Assessment and Plan Plan ASSESSMENT: - GIB. Pt with rectal bleeding, hematochezia with bowel movements. Started yesterday morning- had a normal bowel movement followed by moderate amount of red blood and then had several episodes of loose stools mixed with blood yesterday am, no further episodes. HH dropped from 14.3 to 11.3. Currently stable with no active bleeding. - Diverticulitis vs. Colitis. Abdomen/Pelvis CT (06/11/16) revealed 1. Wall thickening of the descending and sigmoid colon which can be seen with colitis. Underlying diverticulitis cannot be excluded. 2. Hepatic and splenic low densities likely benign. 3. Several soft tissue masses are seen within the mesentery concerning for neoplastic etiology. 4. Uterus is somewhat prominent for patient's age. Nonemergent transvaginal pelvic sonogram to evaluate endometrium. 5. 1.2 cm right renal low density, likely benign. WBC stable. Afebrile. EGD/Colonoscopy (01/09/13)-----> Gastritis in the antrum, polyps in stomach body (unable to biopsy secondary to two episodes of desaturation)- likely hyperplastic polyps; old blood seen in the sigmoid and descending colon most likely the source of the bleeding but no active bleed. Severe diverticulosis and sigmoid in descending colon, the rest of the colon was normal. No hx of diverticulitis. However, inflammation is at some area where she has known severe diverticulosis- descending and sigmoid colon. She also has been eating alot of nuts recently. Will treat with levaquin/flagyl for diverticulitis at this time and obtain stool studies to rule out infectious etiology. If symptoms improve with antibiotics, then would recommend colonoscopy in 4-6 weeks. If further bleeding or worsening of symptoms, will consider this sooner. - Anemia secondary to blood loss. 14.3/42.7---> 11.3/33.8. - Abnormal imaging with several soft tissue masses are seen within the mesentery concerning for neoplastic etiology, prominent uterus, and right renal low density. Will defer to primary - Hypokalemia. K+ 3.3, per primary - LEONEL, improved. - HTN, Hyperlipidemia, Polymyalgia rheumatica, per primary. PLAN: - Full liquid diet - Levaquin 500mg IV daily - Flagyl 500mg IV q8h - Cont. PPI - Monitor HH q6h x 3 - Transfuse as necessary - CBC, BMP in am - Stool for CDiff, O&P, C/S, Giardia - Will treat for diverticulitis, if improves and no further bleeding, will plan for colonoscopy in 4-6 weeks. - Supportive care - Further recommendations to follow based on results of above Ernie Collins MD Jun 12, 2016 10:08
--- NOTE | 2016-06-12 10:59 | HHI.PR ---
Subjective Remarks doing ok . eager for d/c Objective Vitals heart reg lung cta abd s/nt ext no edema Vital Signs Date Time Temp Pulse Resp B/P Pulse Ox O2 Delivery O2 Flow Rate FiO2 06/12/16 08:08 97.0 60 18 152/75 97 06/12/16 04:00 97.9 65 16 161/72 93 06/12/16 00:00 98.3 66 17 145/67 93 06/11/16 20:00 97.8 73 16 144/65 92 06/11/16 16:00 98.1 64 20 116/58 93 06/11/16 12:00 97.4 70 16 156/74 94 06/11/16 06/11/16 06/12/16 14:59 22:59 06:59 Intake Total 362 ml 580 ml 240 ml Balance 362 ml 580 ml 240 ml Intake Oral 580 ml 240 ml IV Total 362 ml # Voids 3 3 # Bowel Movements 0 0 Result Diagram: 06/12/165 06/12/165 A/P Problem List: (1) GIB (gastrointestinal bleeding) Status: Acute Plan: Pt with hx diverticolosis presents with [address] shows inflammation of descending and sigmoid colon....colitis vs diverticulitis with multiple small masses in mesentery of unclear etiology. Also some uterine enlargement noted. 2012 c-scope showed severe sigmoid/descending colon diverticulosis. GI consulted. long discussion with GI..felt to be diverticulitis. ?LN enlargement in mesentery from inflammation vs malignancy. We agreed the best course of action is to treat the diverticulitis x 2 weeks then arrange for outpt colonoscopy in next [address] scan. If the mesenteric abnormalities are still present or enlarging then send for biopsy(?pet/ct). also we will wait on the TVUS. advance diet and plan for d/c tomorrow. replace k (2) Mesenteric mass Status: Acute Plan: see above (3) HTN (hypertension) Status: Chronic Plan: cont risa/ccb/bb/hydrazine. hold and d/c arb. prn control. add alternative bp med if needed. (4) Atrial fibrillation Status: Chronic Plan: s/p ablation. currently in sinus (5) Hypokalemia Status: Acute Plan: ivf with kcl. Arnel Johnson MD Jun 12, 2016 10:59
[2016-06-12 21:58] LABS: C. DIFF EPI 027 PRESUMPTIVE NEGATIVE (NEGATIVE); C. DIFF TOXIN PCR NEGATIVE (NEGATIVE)
[2016-06-13] VITALS: BP 158/71; PULSE 65; RESP 16; TEMP 98.7; O2SAT 95
[2016-06-13] MEDS: LEVOFLOXACIN 500 MG PREMIX INJ 100 ML IV SCH (04:00)
[2016-06-13 04:08] VITALS: BP 157/74; PULSE 63; RESP 15; TEMP 96.4; O2SAT 95
[2016-06-13] MEDS: metroNIDAZOLE 500 MG INJ 100 ML IV SCH ×2 (05:15→14:00)
[2016-06-13 08:00] VITALS: BP 176/74; PULSE 63; RESP 17; TEMP 97.3; O2SAT 93
[2016-06-13] MEDS: POTASSIUM CHLORIDE 20 MEQ CONTROLLED RELEASE TAB PO SCH (08:22)
[2016-06-13] MEDS: amLODIPine BESYLATE 5 MG TAB PO SCH (08:22)
[2016-06-13] MEDS: hydrALAZINE HCL 50 MG TAB PO SCH ×2 (08:23→13:59)
[2016-06-13] MEDS: ATENOLOL 50 MG TAB PO SCH (08:23)
[2016-06-13] MEDS: LISINOPRIL 20 MG TAB PO SCH (08:23)
[2016-06-13] MEDS: PANTOPRAZOLE SOD 40 MG DELAYED RELEASE TAB PO SCH (08:23)
[2016-06-13] MEDS: SODIUM CHLORIDE 0.9% FLUSH 5 ML FLUSH IVF SCH (08:26)
[2016-06-13 09:33] LABS: BICARBONATE 20.8 MEQ/L (21.0-32.0); MAGNESIUM 1.7 MG/DL (1.5-2.5); POTASSIUM 3.1 MEQ/L (3.5-5.1)
[2016-06-13] MEDS ORDERED: POTASSIUM CHLORIDE 20 MEQ CONTROLLED RELEASE TAB PO SCH (10:00)
--- NOTE | 2016-06-13 10:28 | HHI.PR ---
Subjective Remarks eager to advance diet and go home. Objective Vitals heent neg heart rg lung cta abd s/nt ext no edema Vital Signs Date Time Temp Pulse Resp B/P Pulse Ox O2 Delivery O2 Flow Rate FiO2 06/13/16 08:00 97.3 63 17 176/74 93 06/13/16 04:08 96.4 63 15 157/74 95 06/13/16 00:00 98.7 65 16 158/71 95 06/12/16 20:00 98.1 70 16 155/79 96 06/12/16 18:18 94 21 06/12/16 16:10 97.8 70 16 129/72 94 06/12/16 12:10 97.8 62 16 149/68 97 06/12/16 11:31 92 21 06/12/16 06/12/16 06/13/16 15:00 23:00 07:00 Intake Total 980 ml 360 ml 360 ml Balance 980 ml 360 ml 360 ml Intake Oral 980 ml 360 ml 360 ml # Voids 3 1 2 # Bowel Movements 1 0 Result Diagram: 06/12/16 0455 06/13/16 0745 A/P Problem List: (1) GIB (gastrointestinal bleeding) Status: Acute Plan: Pt with hx diverticolosis presents with [address] shows inflammation of descending and sigmoid colon....colitis vs diverticulitis with multiple small masses in mesentery of unclear etiology. Also some uterine enlargement noted. 2012 c-scope showed severe sigmoid/descending colon diverticulosis. GI consulted. long discussion with GI..felt to be diverticulitis. ?LN enlargement in mesentery from inflammation vs malignancy. We agreed the best course of action is to treat the diverticulitis x 2 weeks then arrange for outpt colonoscopy in next [address] scan. If the mesenteric abnormalities are still present or enlarging then send for biopsy(?pet/ct). also may need TVUS. advance diet and d/c later today will call pcp replace k repeat bmp . (2) Mesenteric mass Status: Acute Plan: see above (3) HTN (hypertension) Status: Chronic Plan: cont risa/ccb/bb/hydrazine. held arb will call pcp to suggest bp med changes. (4) Atrial fibrillation Status: Chronic Plan: s/p ablation. currently in sinus (5) Hypokalemia Status: Acute Plan: ivf with kcl. Arnel Johnson MD Jun 13, 2016 10:28
[2016-06-13] MEDS ORDERED: METR-1 PO (10:31)
[2016-06-13] MEDS ORDERED: LEVA500T PO (10:31)
[2016-06-13] MEDS ORDERED: POTA20TA5 PO (10:31)
--- NOTE | 2016-06-13 10:32 | HHI.DCPOC ---
Discharge Care Plan Diagnosis: (1) Diverticulitis (2) Diverticula of colon (3) Mesenteric mass (4) GIB (gastrointestinal bleeding) (5) Hypokalemia (6) Atrial fibrillation (7) HTN (hypertension) Goals to Promote Your Health * To prevent worsening of your condition and complications * To maintain your health at the optimal level Directions to Meet Your Goals Take your medications as prescribed Follow your dietary instruction Follow activity as directed Keep your appointments as scheduled Take your immunizations and boosters as scheduled If your symptoms worsen call your PCP, if no PCP go to Urgent Care Center or Emergency Room Smoking is Dangerous to Your Health. Avoid second hand smoke Call the 24-hour hour crisis hotline for domestic abuse at Arnel Johnson MD Jun 13, 2016 10:32
[2016-06-13] MEDS ORDERED: POTASSIUM CHLORIDE 20 MEQ CONTROLLED RELEASE TAB PO ONE ×2 (11:00→14:00)
--- NOTE | 2016-06-13 11:34 | HHI.GIFU ---
Subjective Remarks Feeling well overall and asymptomatic. Objective Vitals I&O Vital Signs Date Time Temp Pulse Resp B/P Pulse Ox O2 Delivery O2 Flow Rate FiO2 06/13/16 08:00 97.3 63 17 176/74 93 06/13/16 04:08 96.4 63 15 157/74 95 06/13/16 00:00 98.7 65 16 158/71 95 06/12/16 20:00 98.1 70 16 155/79 96 06/12/16 18:18 94 21 06/12/16 16:10 97.8 70 16 129/72 94 06/12/16 12:10 97.8 62 16 149/68 97 I/O 06/12/16 06/12/16 06/12/16 06/13/16 06/13/16 06/13/16 07:00 15:00 23:00 07:00 15:00 23:00 Intake Total 240 ml 980 ml 360 ml 360 ml Balance 240 ml 980 ml 360 ml 360 ml Intake Oral 240 ml 980 ml 360 ml 360 ml # Voids 3 3 1 2 # Bowel Movements 0 1 0 Laboratory Laboratory Tests Test 06/12/16 06/12/16 06/13/16 15:18 20:00 07:45 Potassium Level 3.8 3.1 Stool C. difficile Toxin (PCR) NEGATIVE Stl C. difficile Toxin PRESUMPTIVE Epiderm 027 NEGATIVE Sodium Level 138 Chloride Level 104 Carbon Dioxide Level 20.8 Anion Gap 13 Blood Urea Nitrogen 11 Creatinine 0.88 Estimat Glomerular Filtration 62 Rate Random Glucose 86 Calcium Level 8.7 Magnesium Level 1.7 Physical Exam HEENT: Pupils round and reactive to light; normocephalic; atraumatic; no jaundice. Throat is clear. NECK: Neck is supple, no JVD, no lymphadenopathy. CHEST: Chest is clear to auscultation and percussion. CARDIAC: Regular rate and rhythm with no murmur gallop or rubs. ABDOMEN: Soft, nondistended, nontender; no hepatosplenomegaly; bowel sounds are present in all four quadrants. EXTREMITIES: No clubbing, cyanosis, or edema. Assessment and Plan Plan ASSESSMENT: - GIB. Pt with rectal bleeding, hematochezia with bowel movements. Started yesterday morning- had a normal bowel movement followed by moderate amount of red blood and then had several episodes of loose stools mixed with blood yesterday am, no further episodes. dropped from 14.3 to 11.3. Currently stable with no active bleeding. - Diverticulitis vs. Colitis. Abdomen/Pelvis CT (06/11/16) revealed 1. Wall thickening of the descending and sigmoid colon which can be seen with colitis. Underlying diverticulitis cannot be excluded. 2. Hepatic and splenic low densities likely benign. 3. Several soft tissue masses are seen within the mesentery concerning for neoplastic etiology. 4. Uterus is somewhat prominent for patient's age. Nonemergent transvaginal pelvic sonogram to evaluate endometrium. 5. 1.2 cm right renal low density, likely benign. WBC stable. Afebrile. EGD/Colonoscopy (01/09/13)-----> Gastritis in the antrum, polyps in stomach body (unable to biopsy secondary to two episodes of desaturation)- likely hyperplastic polyps; old blood seen in the sigmoid and descending colon most likely the source of the bleeding but no active bleed. Severe diverticulosis and sigmoid in descending colon, the rest of the colon was normal. No hx of diverticulitis. However, inflammation is at some area where she has known severe diverticulosis- descending and sigmoid colon. She also has been eating alot of nuts recently. Will treat with levaquin/flagyl for diverticulitis at this time and obtain stool studies to rule out infectious etiology. If symptoms improve with antibiotics, then would recommend colonoscopy in 4-6 weeks. If further bleeding or worsening of symptoms, will consider this sooner. - Anemia secondary to blood loss. 14.3/42.7---> 11.3/33.8. - Abnormal imaging with several soft tissue masses are seen within the mesentery concerning for neoplastic etiology, prominent uterus, and right renal low density. Will defer to primary - Hypokalemia. K+ 3.3, per primary - LEONEL, improved. - HTN, Hyperlipidemia, Polymyalgia rheumatica, per primary. PLAN: - [place] - Levaquin 500mg IV daily - Flagyl 500mg IV q8h - Cont. PPI - As discussed with primary team, will continue antibiotics course for diverticulitis, Colonoscopy as out patient in 4-6 weeks, followed by CT for follow up on the mesenteric lesions. - Further recommendations to follow based on results of above Ernie Collins MD Jun 13, 2016 11:34
[2016-06-13 12:00] VITALS: BP 165/74; PULSE 63; RESP 16; TEMP 97.6; O2SAT 98
[2016-06-13 13:50] VITALS: PULSE 78
== END 2016-06-13 16:09 | disposition home or self-care (01) | DRG 378 ==
LOC: NEPE 19:03 → NEDA 06-11 03:26 → N06A 06-11 05:37
PROVIDERS: ADMIT Hospitalist; ATTEND Hospitalist
DX: K92.2 Gastrointestinal hemorrhage, unspecified (principal); N17.9 Acute kidney failure, unspecified; K57.33 Diverticulitis of large intestine without perforation or abscess with bleeding; K52.9 Noninfective gastroenteritis and colitis, unspecified; I48.0 Paroxysmal atrial fibrillation; R63.0 Anorexia; M41.9 Scoliosis, unspecified; N18.3 Chronic kidney disease, stage 3 (moderate); I12.9 Hypertensive chronic kidney disease with stage 1 through stage 4 chronic kidney disease, or unspecified chronic kidney disease; E87.6 Hypokalemia; E78.5 Hyperlipidemia, unspecified; Z79.82 Long term (current) use of aspirin; M19.90 Unspecified osteoarthritis, unspecified site; M35.3 Polymyalgia rheumatica; N85.2 Hypertrophy of uterus; K59.00 Constipation, unspecified; M85.80 Other specified disorders of bone density and structure, unspecified site; D64.89 Other specified anemias
CPT/HCPCS: 71010; 74177; 80048; 80053; 81001; 83690; 83735; 84132; 85014; 85018; 85025; 85610; 85730; 86850; 86900; 86901; 87493; 93005; 96365; 96366; 96367; 96375; C9113; J1956; J2405; J3480; J7030; Q9967

== ENCOUNTER 2016-07-23 19:57 | Emergency (ER) | payer MEDICARE ==
[~2016-07-23] VITALS: Ht 162.6 cm; Wt 67.5 kg
[~2016-07-23 19:57] MED LIST changes: +AMLO5TAB2 PO; -AMLO5TAB22 PO; -ASPI325T PO; -ATEN-102 PO; +ATEN50TA PO; -BENA10 PO; +BENA20TA PO; -CLON.2 PO; +HYDR50TA15 PO; +LEVA500T PO; +LOSA100T PO; -METH4PAK PO; +METR-1 PO; +POTA20TA5 PO
[2016-07-23 20:02] VITALS: BP 183/88; PULSE 83; RESP 24; TEMP 98.2; O2SAT 96
== END 2016-07-23 22:18 | disposition left against medical advice (07) ==
LOC: PHED 19:57
DX: I10 Essential (primary) hypertension (principal)
CPT/HCPCS: 99281

== ENCOUNTER 2017-02-24 00:28 | Emergency (ER) | payer MEDICARE ==
[~2017-02-24] VITALS: Ht 162.6 cm; Wt 67.5 kg
[2017-02-24 00:32] VITALS: BP 173/102; PULSE 121; RESP 16; TEMP 98.5; O2SAT 97
[2017-02-24] MEDS ORDERED: ASPI325T PO (00:50)
[2017-02-24] MEDS ORDERED: TRIA37.53 PO (00:50)
[2017-02-24] MEDS ORDERED: LOVA10TA PO (00:50)
[2017-02-24] MEDS ORDERED: HYDR-3801 PO (00:50)
[2017-02-24 01:07] VITALS: BP 196/84; PULSE 110; RESP 24
[2017-02-24] MEDS ORDERED: SODIUM CHLORIDE 0.9% FLUSH 10 ML FLUSH IVF PRN (01:30)
[2017-02-24 01:50] LABS: AUTOMATED NEUTROPHIL # 6.2 TH/MM3 (1.8-7.7); BASOPHIL # 0.1 TH/MM3 (0-0.2); EOSINOPHIL # 0.2 TH/MM3 (0-0.4); EOSINOPHIL % 2.9 % (0.0-4.0); HEMATOCRIT 45.2 % (35.0-46.0); HEMO FLAGS DIFF FINAL; LYMPHOCYTE # 1.2 TH/MM3 (1.0-4.8); MEAN CELL VOLUME 92.3 FL (80.0-100.0); MEAN CORPUSCULAR HEMOGLOBIN 31.3 PG (27.0-34.0); NEUT % 75.1 % (16.0-70.0); PLATELET COUNT 259 TH/MM3 (150-450); RED CELL DISTRIBUTION WIDTH 12.4 % (11.6-17.2); WHITE BLOOD COUNT 8.3 TH/MM3 (4.0-11.0)
--- NOTE | 2017-02-24 01:52 | RADRPT ---
EXAM DATE/TIME: 02/24/2017 01:41 [facility] COMPARISON: CHEST SINGLE AP, June 10, 2016, 20:44. INDICATIONS : Chest pain. MEDICAL HISTORY : None. SURGICAL HISTORY : None. ENCOUNTER: Initial ACUITY: 1 day PAIN SCORE: 7/10 LOCATION: Bilateral chest FINDINGS: A single view of the chest demonstrates mild atelectatic changes in the left hemidiaphragm. Lungs are otherwise clear without acute infiltrate or effusion. Heart size is prominent the wall, considered. Osseous structures are intact with some degenerative spurring of the dorsal spine. CONCLUSION: 1. Left basilar atelectasis/scarring. Lungs are otherwise clear. 2. Compensated cardiomegaly. John Kirkpatrick MD on February 24, 2017 at 1:50 Board Certified Radiologist. This report was verified electronically.
[2017-02-24 02:02] LABS: APTT (PATIENT) 27.3 SEC (24.3-30.1); INTERNATIONAL NORMALIZED RATIO 0.9 RATIO; PROTHROMBIN TIME - PATIENT 9.9 SEC (9.8-11.6)
[2017-02-24 02:16] LABS: ANION GAP 10 MEQ/L (5-15); BICARBONATE 24.1 MEQ/L (21.0-32.0); BLOOD UREA NITROGEN 18 MG/DL (7-18); CHLORIDE 98 MEQ/L (98-107); GLOMERULAR FILTRATION RATE 42 ML/MIN (>89); POTASSIUM 3.4 MEQ/L (3.5-5.1); SODIUM (NA) 132 MEQ/L (136-145)
[2017-02-24 02:17] LABS: CREATINE KINASE 128 U/L (26-192)
[2017-02-24 02:30] LABS: CKMB 1.3 NG/ML (0.5-3.6)
[2017-02-24 02:41] VITALS: BP 158/77; PULSE 76; RESP 20
--- NOTE | 2017-02-24 03:12 | PD ---
HPI Chief Complaint: Cardiac Complaint Time Seen by Provider: 01:13 Travel History International Travel<30 days: No Contact w/Intl Traveler<30days: No Traveled to known affect area: No History of Present Illness HPI Patient is an 81-year-old female who comes in complaining of palpitations. She has history of atrial fibrillation, but had an ablation done in 2012. She says she has not had any issues since then. She says today she was sitting down when also and she felt her heart racing. She denies having any chest pain or shortness of breath. She says currently she feels better. She follows with the lock setter and reports having extensive testing performed with him recently. She has not been told that anything was abnormal. PFSH Past Medical History Hx Anticoagulant Therapy: Yes (Aspirin) Arthritis: Yes Asthma: No Atrial Fibrillation: Yes Autoimmune Disease: No Depression: No Heart Rhythm Problems: Yes (A-FIB) Cancer: No Cardiovascular Problems: Yes (HTN, Ablation 2011) High Cholesterol: No Chemotherapy: No Chest Pain: No Congestive Heart Failure: No COPD: No Cerebrovascular Accident: No Diabetes: No Diminished Hearing: No Endocrine: No Gastrointestinal Disorders: Yes GERD: No Genitourinary: No Hepatitis: No Hiatal Hernia: No Hypertension: Yes Immune Disorder: No Kidney Stones: No Musculoskeletal: No Neurologic: No Psychiatric: No Reproductive: No Respiratory: No Migraines: No Radiation Therapy: No Renal Failure: No Seizures: No Sickle Cell Disease: No Sleep Apnea: No Thyroid Disease: No Ulcer: No Tetanus Vaccination: < 5 Years Influenza Vaccination: Yes ?: Not Menopausal: Yes Past Surgical History Abdominal Surgery: No AICD: No Arteriovenous Shunt: No Cardiac Surgery: No Ear Surgery: No Eye Surgery: Yes (bilatertal CATARACT) Genitourinary Surgery: No Gynecologic Surgery: No Insulin Pump: No Joint Replacement: No Neurologic Surgery: No Oral Surgery: No Pacemaker: No Thoracic Surgery: No Tonsillectomy: Yes Other Surgery: Yes (Cardiac ABLASION) Social History Alcohol Use: Yes (FEW DRINKS PER WEEK) Tobacco Use: No Substance Use: No Allergies-Medications (Allergen,Severity, Reaction): Uncoded Allergies: ANTIHISTAMINE (Allergy, Severe, HYPERTENSION, 01/25/17) Reported Meds & Prescriptions Reported Meds & Active Scripts Active Reported Aspirin 325 Mg Tab 325 Mg PO DAILY Triamterene-Hydrochlorothiazide 37.5-25 Mg Cap 1 Cap PO DAILY Lovastatin 10 Mg Tab 300 Mg PO DAILY Hydralazine (Hydralazine HCl) 100 Mg Tab 50 Mg PO BID Take with meals Amlodipine (Amlodipine Besylate) 5 Mg Tab 5 Mg PO BID Benazepril (Benazepril HCl) 20 Mg Tab 20 Mg PO BID Atenolol 50 Mg Tab 50 Mg PO BID Review of Systems Except as stated in HPI: all other systems reviewed are Neg General / Constitutional: No: Fever, Chills Eyes: No: Blurred Vision HENT: No: Headaches Cardiovascular: Positive: Palpitations, No: Chest Pain or Discomfort Respiratory: No: Shortness of Breath Gastrointestinal: No: Nausea, Vomiting Genitourinary: No: Dysuria Musculoskeletal: No: Myalgias, Edema, Pain Skin: No Rash, No Change in Pigmentation Neurologic: No: Weakness, Dizziness Physical Exam Narrative GENERAL: Awake and alert, in no acute distress. SKIN: Focused skin assessment warm/dry. HEAD: Atraumatic. Normocephalic. EYES: Pupils equal and round. No scleral icterus. ENT: Mucous membranes pink and moist. NECK: Trachea midline. No JVD. CARDIOVASCULAR: Regular rate and irregular rhythm. No murmur appreciated. RESPIRATORY: No accessory muscle use. Clear to auscultation. Breath sounds equal bilaterally. GASTROINTESTINAL: Abdomen soft, non-tender, nondistended. MUSCULOSKELETAL: No obvious deformities. No clubbing. No cyanosis. No edema. NEUROLOGICAL: Awake and alert. No obvious cranial nerve deficits. Motor grossly within normal limits. Normal speech. PSYCHIATRIC: Appropriate mood and affect; insight and judgment normal. Data Data Last Documented VS Vital Signs Date Time Temp Pulse Resp B/P (MAP) Pulse Ox O2 Delivery O2 Flow Rate FiO2 02/24/17 02:41 76 20 158/77 (104) 02/24/17 00:32 98.5 97 Room Air Orders Orders Electrocardiogram (02/24/17 01:18) Basic Metabolic Panel (Bmp) (02/24/17:18) Ckmb (Isoenzyme) Profile (02/24/17:18) Complete Blood Count With Diff (02/24/17:18) Prothrombin Time / Inr (Pt) (02/24/17:18) Act Partial Throm Time (Ptt) (02/24/17:18) Troponin I (02/24/17 01:18) Chest, Single Ap (02/24/17 01:18) Ecg Monitoring (02/24/17 01:18) Bilateral Bp Monitoring (02/24/17:18) Iv Access Insert/Monitor (02/24/17:18) Oximetry (02/24/17 01:18) Oxygen Administration (02/24/17:18) Sodium Chloride 0.9% Flush (Ns Flush) (02/24/17 01:30) CKMB (02/24/17 01:30) CKMB% (02/24/17 01:30) Labs Laboratory Tests Test 02/24/17 01:30 White Blood Count 8.3 TH/MM3 Red Blood Count 4.90 MIL/MM3 Hemoglobin 15.3 GM/DL Hematocrit 45.2 % Mean Corpuscular Volume 92.3 FL Mean Corpuscular Hemoglobin 31.3 PG Mean Corpuscular Hemoglobin Concent 34.0 % Red Cell Distribution Width 12.4 % Platelet Count 259 TH/MM3 Mean Platelet Volume 8.9 FL Neutrophils (%) (Auto) 75.1 % Lymphocytes (%) (Auto) 14.0 % Monocytes (%) (Auto) 7.0 % Eosinophils (%) (Auto) 2.9 % Basophils (%) (Auto) 1.0 % Neutrophils # (Auto) 6.2 TH/MM3 Lymphocytes # (Auto) 1.2 TH/MM3 Monocytes # (Auto) 0.6 TH/MM3 Eosinophils # (Auto) 0.2 TH/MM3 Basophils # (Auto) 0.1 TH/MM3 CBC Comment DIFF FINAL Differential Comment Prothrombin Time 9.9 SEC Prothromb Time International Ratio 0.9 RATIO Activated Partial Thromboplast Time 27.3 SEC Blood Urea Nitrogen 18 MG/DL Creatinine 1.22 MG/DL Random Glucose 123 MG/DL Calcium Level 9.0 MG/DL Sodium Level 132 MEQ/L Potassium Level 3.4 MEQ/L Chloride Level 98 MEQ/L Carbon Dioxide Level 24.1 MEQ/L Anion Gap 10 MEQ/L Estimat Glomerular Filtration Rate 42 ML/MIN Total Creatine Kinase 128 U/L Creatine Kinase MB 1.3 NG/ML Troponin I LESS THAN 0.02 NG/ML MDM Medical Decision Making Medical Screen Exam Complete: Yes Emergency Medical Condition: Yes Medical Record Reviewed: Yes Interpretation(s) ECG shows atrial fibrillation at a rate of 86, no ST elevation. Minimal ST depression in V4 through V6. This is unchanged from previous. Differential Diagnosis Electrolyte abnormality versus atrial fibrillation versus dehydration versus ACS Narrative Course Patient is an 81-year-old female who comes in complaining of her heart racing. Currently she is asymptomatic. Exam shows a regular rhythm, but normal rate. IV established, labs sent. Labs show no acute abnormalities. Maintained and normal rate the entire visit. She reports no further history of palpitations. She would like to go home. She is advised follow-up with her lock setter. Advised to return any time for any worsening symptoms. Diagnosis Primary Impression: Palpitations Additional Impression: Atrial fibrillation Qualified Codes: I48.91 - Unspecified atrial fibrillation Patient Instructions: General Instructions, Heart Palpitations (ED) Additional Instructions: Follow-up with her lock setter. Avoid caffeine or any stimulants. Return to the ED as needed for any worsening symptoms. Disposition: 01 DISCHARGE HOME Condition: Stable Latoya Caballero MD Feb 24, 2017 03:12
[2017-02-24 03:55] VITALS: BP 146/78
--- NOTE | 2017-02-24 21:06 | EKG ---
Date Performed: 02/24/2017 Time Performed: 01:31:01 PTAGE: 81 years EKG: ATRIAL FIBRILLATION MODERATE VOLTAGE CRITERIA FOR LVH, CONSIDER NORMAL VARIANT NONSPECIFIC ST & T-WAVE ABNORMALITY ABNORMAL RHYTHM ECG PREVIOUS TRACING : 06/10/2016 21.01 SINCE PREVIOUS TRACING THERE IS RHYTHM CHANGE FROM Sinus rh ythm TO ATRIAL FIBRILLATION. DOCTOR: Arnel Paul Interpretating Date/Time 02/24/2017 21:06:22
== END 2017-02-24 03:56 | disposition home or self-care (01) ==
LOC: NEPC 00:28
DX: R00.2 Palpitations (principal); I48.91 Unspecified atrial fibrillation; I10 Essential (primary) hypertension; Z79.82 Long term (current) use of aspirin
CPT/HCPCS: 71010; 80048; 82550; 82552; 84484; 85025; 85610; 85730; 93005; 99285

== ENCOUNTER 2017-05-26 08:49 | Day surgery (SDC) | payer MEDICARE ==
[~2017-05-26] VITALS: Ht 165.1 cm; Wt 68.2 kg
[~2017-05-26 08:49] MED LIST changes: +ASPI-183 PO; +HYDR-3801 PO; -HYDR50TA15 PO; -LEVA500T PO; -LOSA100T PO; +LOVA10TA PO; -LOVA20TA PO; -METR-1 PO; -POTA20TA5 PO; +TRIA37.53 PO
[2017-05-26 09:16] VITALS: BP 173/81; PULSE 54; RESP 20; TEMP 97.6; O2SAT 94
[2017-05-26] MEDS ORDERED: APIX5TAB PO (09:17)
[2017-05-26] MEDS ORDERED: K-TA10TA PO (09:17)
[2017-05-26] MEDS ORDERED: LOVA20TA PO (09:17)
[2017-05-26] MEDS ORDERED: SODIUM CHLOR 0.9% 1000 ML IV SCH (09:45)
[2017-05-26] MEDS ORDERED: LIDOCAINE 1%/EPINEPHrine 1:100,000 SOLN 20 ML VIAL ONE (10:42)
== END 2017-05-26 13:35 | disposition home or self-care (01) ==
LOC: HRAD 08:49 → HRIP 08:50 → HRAD 13:35
PROVIDERS: ATTEND Internal Medicine Gastroenterology
DX: K76.9 Liver disease, unspecified (principal); Z53.9 Procedure and treatment not carried out, unspecified reason
CPT/HCPCS: J7030